=== PATIENT | male | born 1970 | race Caucasian/White ===

== ENCOUNTER 2023-01-15 11:31 | Emergency (ER) | payer BC, SELFPAY ==
[2023-01-15] VITALS (8 sets, daily range): BP systolic 137–194; BP diastolic 83–116; PULSE 83–100; RESP 18–26; TEMP 36.4; O2SAT 95–99
--- NOTE | 2023-01-15 11:44 | W.ED.GENAD ---
Discharge Plan Disposition Patient Disposition: Home Condition: Stable Discharge Details Clinical Impression: Hyperglycemia ED Provider: Gilmar Hightower Home Meds and New Rx's Prescriptions: New metformin 500 mg tablet 500 mg PO BID Qty: 180 0RF Discharge Instructions Instructions: Diabetic Hyperglycemia (ED) Additional Instructions: I have placed you on our follow up list to try and see a local provider for follow up, you then will need to set up a primary care in the area that you live. if you feel more ill, have fevers, difficulty breathing or severe abdominal pain return to the emergency department Medical Decision Making 52 yo male with no known chronic medical problems, states last had a pcp appointment 1.5 years ago, comes in with high blood sugar. He states he is in the [employer] and had a wellness check today. They checked his fingers stick glucose and it read high on a machine that can read up to 600. Pt has no complaints and feels well, denies fevers, chills, chest pain, dyspnea, difficulty urinating. He is noted to be hypertensive on arrival, caox4 with clear speech, no headaches. Suspect he has undiagnosed hypertension and diabetes, will check vbg, cbc, cmp, ua and a1c and reassess. labs show glucose over 600, no evidence of dka with no ketones in urine and also normal pH. He still is asymptomatic and bp now 130/80. Will provide one time dose of subcutaneous insulin and start him on metformin. He is in this area for another 2 weeks so will try to get him seen by a pcp for follow up then will need to set up his own pcp in [facility] when he leaves the [employer]. Return precautions given Differential Diagnosis Differential Diagnosis: diabetes, essential hypertension HPI General Mode of arrival: ambulatory. Date/Time Provider Initiated Documentation: 01/15/23 11:37. Limitations to Documentation: no limitations. Information obtained by: patient. History of Present Illness 52 year old M presents to the emergency department with the chief complaint of high blood sugar, described as moderate, Patient started experiencing this unknown and it has been constant. No relieving factors improve symptom(s), No exacerbating factors reported . Patient notes no other symptoms.. Patient did receive the following treatments prior to arrival, none Related Data Home Medications Medication Instructions Recorded Confirmed metformin 500 mg tablet 500 mg PO BID #180 tabs 01/15/23 Previous Rx's Medication Instructions Recorded metformin 500 mg tablet 500 mg PO BID #180 tabs 01/15/23 Allergies Allergy/AdvReac Type Severity Reaction Status Date / Time No Known Allergies Allergy Unverified 01/15/23 11:39 General Stated Complaint: Diabetes ABDOUL: 3 Review of Systems All systems reviewed & are unremarkable except as noted in HPI and below Constitutional Constitutional: Denies chills, Denies fever(s) and Denies weakness Cardiovascular Cardiovascular: Denies chest pain and Denies dyspnea Respiratory Respiratory: Denies cough and Denies dyspnea Gastrointestinal Gastrointestinal: Denies abdominal pain, Denies nausea and Denies vomiting Musculoskeletal Musculoskeletal: Denies joint swelling Neurologic Neurologic: Denies weakness PFSH All Active Problems (Updated 01/15/23 @ 12:46 by Gilmar Hightower MD) Hyperglycemia (Acute) Social History Smoking/Tobacco Use Status: Former Tobacco Use Smoking risk assessment performed?: Yes Alcohol Intake: former Drug use: Never Substance use type: does not use Housing: apartment Do you feel safe at home: Yes Do you feel safe in your relationship?: Yes Exam Const General: no acute distress Orientation: alert HENMT Head: normal to inspection Ears: external ears normal General nose exam: external nose normal Mouth: moist mucous membranes Eyes General: appearance normal, both eyes and all related structures Neck Neck: normal visual inspection Resp Effort & Inspection: normal respiratory effort and able to speak in complete sentences Cardio Rate: regular rate Skin General skin exam: no rashes or lesions noted Neuro General: patient alert and patient oriented x3 Extrem General: normal to inspection Psych Mental Status: mental status grossly normal Course Vital Signs Vital signs: Vital Signs Temperature 36.4 C L 01/15/23 11:35 Pulse 100 H 01/15/23 11:35 Respiratory Rate 18 01/15/23 11:35 Blood Pressure 194/116 H 01/15/23 11:35 Pulse Oximetry 99 01/15/23 11:35 Temperature 36.4 C L 01/15/23 11:35 Temperature Source Skin 01/15/23 11:35 Pulse 100 H 01/15/23 11:35 Respiratory Rate 18 01/15/23 11:35 Blood Pressure 194/116 H 01/15/23 11:35 Blood Pressure Position Sitting 01/15/23 11:35 Pulse Oximetry 99 01/15/23 11:35 Oxygen Delivery Method Room Air 01/15/23 11:35 Oxygen Flow Rate 0 01/15/23 11:35 Pain Level 0 01/15/23 11:35
[2023-01-15 11:53] LABS: BE (Venous) 2 mmol/L (-2-3); HCO3 (Venous) 27 mmol/L (23-28); O2 Sat (Venous) 79 %; TCO2 (Venous) 24 mmol/L (24-29); pCO2 (Venous) 47 mmHg (41-51); pH (Venous) 7.37 (7.31-7.41); pO2 (Venous) 44 mmHg
[2023-01-15 11:53] LABS: Abs Immature Grans 0.02 10^3/uL (0.0-0.06); Absolute Basophil Count 0.04 10^3/uL (0.0-0.2); Absolute Eosinophil Count 0.13 10^3/uL (0.0-0.7); Absolute Lymphocyte Count 1.79 10^3/uL (1.2-3.4); Absolute Monocyte Count 0.44 10^3/uL (0.1-0.8); Absolute Neutrophil Count 4.87 10^3/uL (1.2-6.7); Basophils % 0.5; Eosinophils % 1.8; HCT 45.7 % (40.0-50.0); HGB 16.4 g/dL (13.5-17.5); Immature Grans % 0.3; Lymphocytes % 24.6; MCH 30.3 pg (27.0-33.0); MCHC 35.9 % (32.0-36.0); MCV 84 fL (80-95); MPV 10.2 fL (8.0-11.0); Neutrophils % 66.8; Platelet Count 213 10^3/uL (130-400); RBC 5.42 10^6/uL (4.36-5.78); RDW 11.9 % (11.8-14.1); RDW-SD 36.1 fL; WBC 7.29 10^3/uL (4.4-10.8)
[2023-01-15] MEDS: Normal Saline 1,000 ML 1000 ML IV (11:57)
[2023-01-15 12:14] LABS: Bilirubin Negative (Negative); Blood Negative (Negative); Clarity Clear (Clear); Glucose >=1000 mg/dL (Negative); Ketones Negative (Negative); Leukocyte Esterase Negative (Negative); Nitrite Negative (Negative); Urobilinogen 0.2 mg/dL (Up to 0.2)
[2023-01-15 12:29] LABS: Albumin 3.8 g/dL (3.4-5.0); Alkaline Phosphatase 184 U/L (46-116); BUN 10 mg/dL (7-18); Bilirubin, Total 0.6 mg/dL (0.2-1.0); CREATININE 1.3 mg/dL (0.70-1.30); Chloride 93 mmol/L (98-107); Potassium 4.1 mmol/L (3.5-5.1); Sodium 130 mmol/L (136-145); TSH (W/Ref FT4) 1.45 uIU/mL (0.36-3.74); Total Protein 7.7 g/dL (6.4-8.2)
[2023-01-15 12:31] LABS: Glucose 607 mg/dL (74-106)
[2023-01-15 12:40] LABS: Hemoglobin A1C > 13.0 % (<5.7)
[2023-01-15] MEDS: Insulin REGULAR-Human 100 UNITS/ML UNIT 14 UNITS SC (12:40)
--- NOTE | 2023-01-15 12:46 | NUR.NOTE ---
Nursing Note: PT is from out of area, Needs follow up with PCP early next week to recheck diabetes & Meds. Annalise, ED
[2023-01-15 13:05] LABS: ALT 35 U/L (16-63); AST 16 U/L (15-37)
--- NOTE | 2023-01-15 23:16 | NUR.NOTE ---
Patient needs to be seen locally by a primary care physician for elevate blood sugar as patient is at [employer].
== END 2023-01-15 12:59 | disposition home or self-care (01) ==
LOC: ER 12:54
PROVIDERS: Emergency Provider Emergency Medicine
DX: R73.9 Hyperglycemia, unspecified (principal); R03.0 Elevated blood-pressure reading, without diagnosis of hypertension
CPT/HCPCS: 36415; 80053; 82805; 82962; 96360; 96372; 99284; 81003; 83036; 83735; 84443; 85025